=== PATIENT | female | born 1995 | race Caucasian/White ===

== ENCOUNTER 2021-01-16 19:58 | Inpatient (IN) | payer OTHER ==
[~2021-01-16 19:58] MED LIST: AMOXICILLIN500 MG PO; METRONIDAZOLE500 MG PO
[2021-01-16 20:45] LABS: HCT 31.1 % (37.0-47.0); HGB 11.2 g/dl (12.5-16.0); MCH 35.8 pg (25.0-31.0); MCV 99.4 fL (78.0-100.0); MPV 10.8 fL (6.0-9.5); RBC 3.13 M/uL (4.20-5.40); RDW 12.7 % (11.5-14.0); WBC 14.6 K/uL (4.0-10.5)
[2021-01-16 21:12] LABS: BILIRUBIN NEGATIVE (NEGATIVE); BLOOD TRACE-INTACT Ery/uL (NEGATIVE); CLARITY CLEAR (CLEAR); COLOR YELLOW (YELLOW); GLUCOSE (U) NORMAL (NORMAL); LEUKOCYTES 1+ Leu/uL (NEGATIVE); NITRITE NEGATIVE (NEGATIVE); PROTEIN NEGATIVE (NEGATIVE); SPECIFIC GRAVITY 1.015 (1.001-1.030); UROBILINOGEN 0.2 mg/dL (0.2-1.0)
[2021-01-16 21:13] LABS: AMPHETAMINES NEGATIVE (NEGATIVE); BARBITURATES NEGATIVE (NEGATIVE); ECSTASY (MDMA) NEGATIVE (NEGATIVE); MARIJUANA (THC) NEGATIVE (NEGATIVE); METHADONE NEGATIVE (NEGATIVE); OPIATES NEGATIVE (NEGATIVE); OXYCODONE NEGATIVE (NEGATIVE)
[2021-01-16 21:16] LABS: SQUAMOUS EPITHELIAL CELLS RARE
[2021-01-16 21:58] LABS: BILIRUBIN - TOTAL 0.5 mg/dL (0.2-1.0); CREATININE 0.5 mg/dL (0.51-0.95); GLOBULIN (CALCULATION) 3.7 g/dL; POTASSIUM 4.3 mmol/L (3.5-5.1); TOTAL PROTEIN 6.7 g/dL (6.4-8.2)
[2021-01-18 05:00] LABS: HCT 30.3 % (37.0-47.0); HGB 10.6 g/dl (12.5-16.0); MCH 35.7 pg (25.0-31.0); MPV 10.6 fL (6.0-9.5); RBC 2.97 M/uL (4.20-5.40); RDW 12.8 % (11.5-14.0); WBC 15.7 K/uL (4.0-10.5)
== END 2021-01-19 10:45 | disposition home or self-care (01) | DRG 806 ==
LOC: FOB 19:58
PROVIDERS: ADMIT Obstetrics & Gynecology
PROC: 4A1HX4Z Monitoring of Products of Conception, Cardiac Electrical Activity, External Approach (ICD-10-PCS; 2021-01-16)
PROC: 10E0XZZ Delivery of Products of Conception, External Approach (ICD-10-PCS; principal; 2021-01-17)
PROC: 0HQ9XZZ Repair Perineum Skin, External Approach (ICD-10-PCS; 2021-01-17)
PROC: 0UQMXZZ Repair Vulva, External Approach (ICD-10-PCS; 2021-01-17)
PROC: 3E0P7VZ Introduction of Hormone into Female Reproductive, Via Natural or Artificial Opening (ICD-10-PCS; 2021-01-17)
DX: O24.424 Gestational diabetes mellitus in childbirth, insulin controlled (principal); D62 Acute posthemorrhagic anemia; Z37.0 Single live birth; O99.324 Drug use complicating childbirth; O99.02 Anemia complicating childbirth; Z3A.39 39 weeks gestation of pregnancy; Z20.822 Contact with and (suspected) exposure to COVID-19; O70.0 First degree perineal laceration during delivery; O71.82 Other specified trauma to perineum and vulva; O99.344 Other mental disorders complicating childbirth; F41.9 Anxiety disorder, unspecified; F32.9 Major depressive disorder, single episode, unspecified; F12.90 Cannabis use, unspecified, uncomplicated; O28.3 Abnormal ultrasonic finding on antenatal screening of mother
CPT/HCPCS: 36415; 80053; 80305; 81001; 82009; 82947; J2300; J2405; J7120; J7121; U0002